=== PATIENT | male | born 1950 | race Asian ===

== ENCOUNTER 2019-06-01 11:08 | Emergency (ER) | payer MEDICAID ==
[~2019-06-01] VITALS: Ht 167.6 cm; Wt 65.3 kg
[2019-06-01] MEDS ORDERED: ATOR40TA28 PO (11:18)
[2019-06-01] MEDS ORDERED: METO25XL PO (11:18)
[2019-06-01] MEDS ORDERED: [UNRECOGNIZED DRUG - CODE] PO (11:18)
[2019-06-01] MEDS ORDERED: ASPI-1227 PO (11:18)
[2019-06-01] MEDS ORDERED: LISI-662 PO (11:18)
[2019-06-01] MEDS ORDERED: CHL25 PO (11:18)
[2019-06-01 12:44] LABS: BASOPHILS % (AUTO) 0.6 % (0.0-2.0); EOSINOPHILS % (AUTO) 2.4 % (1.0-6.0); HEMATOCRIT 35.8 % (41-53); HEMOGLOBIN 11.8 g/dL (13.5-17.5); LYMPHOCYTES # (AUTO) 1.1 K/uL (1.0-4.8); LYMPHOCYTES % (AUTO) 10.1 % (22.0-44.0); MEAN CORPUSCULAR HEMOGLOBIN 30.5 pg (26.0-34.0); MEAN CORPUSCULAR HGB CONC 32.9 G/dL (31.0-37.0); MEAN CORPUSCULAR VOLUME 93 fL (80-100); MONOCYTES % (AUTO) 9.7 % (2.0-9.0); NEUTROPHILS # (AUTO) 8.1 K/uL (1.8-7.7); NEUTROPHILS % (AUTO) 77.2 % (40.0-70.0); PLATELET COUNT (AUTO) 282 K/uL (150-450); RED BLOOD CELL COUNT(AUTO) 3.86 MIL/uL (4.50-5.90); RED CELL DISTRIBUTION WIDTH 12.5 % (11.5-14.5)
[2019-06-01 12:52] LABS: CREATININE 1.21 mg/dL (0.60-1.30); POTASSIUM 4.3 mmol/L (3.5-5.1)
[2019-06-01 12:56] LABS: ALBUMIN 4.1 g/dL (3.4-5.0); BILIRUBIN,TOTAL 0.6 mg/dL (0.1-1.0)
[2019-06-01 14:53] VITALS: BP 117/63
== END 2019-06-01 15:08 | disposition home or self-care (01) ==
LOC: EMS 11:13
DX: L03.115 Cellulitis of right lower limb (principal); E78.00 Pure hypercholesterolemia, unspecified; I10 Essential (primary) hypertension; Z79.899 Other long term (current) drug therapy; Z79.82 Long term (current) use of aspirin
CPT/HCPCS: 93971